=== PATIENT | female | born 1970 ===

== ENCOUNTER 2018-04-01 10:07 | Emergency (ER) | payer BC ==
[2018-04-01 10:08] VITALS: BMI 26.5
[2018-04-01 10:19] VITALS: RESP 18
[2018-04-01] MEDS ORDERED: Sodium Chloride 0.9% 1,000 ML IV STA (10:47)
--- NOTE | 2018-04-01 11:03 | ED PDOC ---
Arrival/HPI <Raul Valdes - Last Filed: 04/01/18 11:16> - General Historian: Patient, Spouse - History of Present Illness Narrative History of Present Illness (Text): 04/01/18 10:45 Patient is a 47 year old female with past medical history of hypertension who presented to the emergency department for 1 day history of productive cough, generalized body aches and chills. Patient states that her symptoms started yesterday. She took mucinex yesterday with no improvement in symptoms. Cough is productive with green sputum, and is asociated with back pain that radiates to the chest. Patient reports having a a migraine currently, that she rates 10/10 on the pain scale. She denies any fevers but admits to chills with occasional nausea. She denies any sick contacts or recent travel. Denies dizziness, cp, palpitations, sob, abdominal pain, vomiting, diarrhea, constipation, urinary symptoms. Time/Duration: 24 hours Symptom Course: Unchanged Quality: Unable to Describe Severity Level: 10 <Dee Dee Beltran - Last Filed: 04/01/18 12:58> - General Chief Complaint: Flu-like Symptoms Time Seen by Provider: 04/01/18 10:15 Past Medical History - Provider Review Nursing Documentation Reviewed: Yes - Travel History Have you recently traveled outside [place] w/in the past 3 mons?: No - Infectious Disease Hx of Infectious Diseases: None - Tetanus Immunization Tetanus Immunization: Up to Date - Past Medical History Past Medical History: No Previous - Cardiac Hx Cardiac Arrhythmia: Yes (irregular heart beat) Hx Hypertension: Yes Other/Comment: Loop recorder implantation since May 26. - Neurological Hx Migraine: Yes - Musculoskeletal/Rheumatological Hx Falls: No - Psychiatric Hx Depression: No Hx Substance Use: No - Past Surgical History Past Surgical History: No Previous - Surgical History Hx Section: Yes (x2) Other/Comment: rotator cuff surgery. fx R collar bone 01/20/18 - Anesthesia Hx Anesthesia: Yes Hx Anesthesia Reactions: No Hx Malignant Hyperthermia: No - Suicidal Assessment Feels Threatened In Home Enviroment: No <Dee Dee Beltran - Last Filed: 04/01/18 12:58> Family/Social History - Physician Review Nursing Documentation Reviewed: Yes Family/Social History: Diabetes, Hypertension, CAD/[place] Smoking Status: Never Smoked Hx Alcohol Use: No Hx Substance Use: No Hx Substance Use Treatment: No <Dee Dee Beltran - Last Filed: 04/01/18 12:58> Allergies/Home Meds <Raul Valdes - Last Filed: 04/01/18 11:16> <Dee Dee Beltran - Last Filed: 04/01/18 12:58> Allergies/Adverse Reactions: Allergies No Known Allergies Allergy (Verified 05/23/17 09:23) Home Medications: Home Meds Medication Instructions Recorded Confirmed Lisinopril [Zestril] 1 tab PO DAILY 05/23/17 04/01/18 Review of Systems - Review of Systems Constitutional: Fatigue. absent: Weight Change, Fevers Eyes: absent: Vision Changes ENT: Sore Throat. absent: Hearing Changes, Sinus Congestion Respiratory: Cough, Sputum. absent: SOB, Wheezing Cardiovascular: absent: Chest Pain, Palpitations, Calf Pain Gastrointestinal: Nausea. absent: Abdominal Pain, Stool Changes, Constipation, Diarrhea, Vomiting Genitourinary Female: absent: Dysuria, Frequency Musculoskeletal: Back Pain, Myalgias Skin: absent: Rash Neurological: Headache. absent: Dizziness <Dee Dee Beltran - Last Filed: 04/01/18 12:58> Physical Exam Vital Signs Temp Pulse Resp BP Pulse Ox 04/01/18 10:08 99.5 F 94 H 18 157/96 H 99 <Raul Valdes - Last Filed: 04/01/18 11:16> Vital Signs Reviewed: Yes Vital Signs Temp Pulse Resp BP Pulse Ox 04/01/18 10:08 99.5 F 94 H 18 157/96 H 99 Temperature: Afebrile Blood Pressure: Hypertensive Pulse: Regular Respiratory Rate: Normal Appearance: Positive for: Non-Toxic, Uncomfortable Pain Distress: Mild Mental Status: Positive for: Alert and Oriented X 3 - Systems Exam Head: Present: Atraumatic, Normocephalic Pupils: Present: PERRL Extroacular Muscles: Present: EOMI Conjunctiva: Present: Normal Mouth: Present: Moist Mucous Membranes Pharnyx: Present: Normal. No: ERYTHEMA, EXUDATE, TONSILS ENLARGED Neck: Present: Lymphadenopathy (right anterior cervical lymph node tenderness) Respiratory/Chest: Present: Good Air Exchange Abdomen: Present: Normal Bowel Sounds. No: Tenderness, Distention Back: Present: Normal Inspection. No: CVA Tenderness Upper Extremity: Present: Normal Inspection, Other (Limited ROM of right due to pain (rotator cuff injury)) Lower Extremity: Present: Normal Inspection Neurological: Present: GCS=15 Skin: Present: Warm, Dry, Normal Color. No: Rashes Lymphatic: Present: Cervical Adenopathy Psychiatric: Present: Alert, Oriented x 3 <Dee Dee Beltran - Last Filed: 04/01/18 12:58> Medical Decision Making ED Course and Treatment: 04/01/18 11:14 Seen and examined with resident. 47 year old female presents with productive cough, generalized body aches and chills. On exam, tenderness to right cervical lymph node. - RAD Interpretation Radiology Orders: 04/01/18 10:46 CXR [CHEST PORTABLE] [RAD] Stat - Medication Orders Current Medication Orders: Sodium Chloride (Sodium Chloride 0.9%) 1,000 mls @ 999 mls/hr IV .Q1H1M STA Stop: 04/01/18 11:47 Discontinued Medications Ketorolac Tromethamine (Toradol) 15 mg IVP STAT STA Stop: 04/01/18 10:48 <Raul Valdes - Last Filed: 04/01/18 11:16> ED Course and Treatment: 04/01/18 10:45 Patient seen and examined at bedside. Complaining for generalized body aches, chills, and productive cough since yesterday. Will order CBC, CMP, UA, CXR, Influenza A B, 1L NS bolus. Toradol 15mg IVP 04/01/18 12:47 Patient feeling better. Labs and imaging reviewed. Will discharge home with instructions to follow up with PMD outpatient. - Lab Interpretations I have reviewed the lab results: Yes Interpretation: All labs normal - RAD Interpretation Narrative RAD Interpretations (Text): 04/01/18 12:48 CXR: No active disease Radiology Orders: 04/01/18 10:46 CXR [CHEST PORTABLE] [RAD] Stat Electric Lineman: ED Physician - EKG Interpretation EKG Interpretation (Text): 04/01/18 11:27 EK bpm, NSR, no ST-T wave changes Interpreted by ED Physician: Yes Type: 12 lead EKG - Medication Orders Current Medication Orders: Sodium Chloride (Sodium Chloride 0.9%) 1,000 mls @ 999 mls/hr IV .Q1H1M STA Stop: 04/01/18 11:47 Discontinued Medications Ketorolac Tromethamine (Toradol) 15 mg IVP STAT STA Stop: 04/01/18 10:48 <Dee Dee Beltran - Last Filed: 04/01/18 12:58> - PA / PARTS PROCESSOR / Resident Statement / has reviewed & agrees with the documentation as recorded. / has examined the patient and agrees with the treatment plan. - Scribe Statement The provider has reviewed the documentation as recorded by the Scribe Ariana Meek All medical record entries made by the Scribe were at my direction and personally dictated by me. I have reviewed the chart and agree that the record accurately reflects my personal performance of the history, physical exam, medical decision making, and the department course for this patient. I have also personally directed, reviewed, and agree with the discharge instructions and disposition. <Raul Valdes - Last Filed: 04/01/18 11:16> Disposition/Present on Arrival <Raul Valdes - Last Filed: 04/01/18 11:16> - Present on Arrival Any Indicators Present on Arrival: No History of DVT/PE: No History of Uncontrolled Diabetes: No Urinary Catheter: No History of Decub. Ulcer: No History Surgical Site Infection Following: None - Disposition Have Diagnosis and Disposition been Completed?: Yes Disposition Time: 12:49 Patient Plan: Discharge <DevinDee Dee - Last Filed: 04/01/18 12:58> - Disposition Diagnosis: Upper respiratory infection Disposition: HOME/ ROUTINE Patient Problems: Current Active Problems Problem Status Onset Upper respiratory infection Acute Condition: FAIR Discharge Instructions (ExitCare): Viral Upper Respiratory Infection, Adult (DC) Additional Instructions: - Recommending to increase PO hydration, Advil OTC as needed - Follow up with PMD outpatient within 2-3 days - If symptoms worsen, return to emergency dept Referrals: Leida Packer MD [Primary Care Provider] - Follow up with primary Forms: [employer] (Korean)
[2018-04-01 11:33] LABS: BASO # 0.02 K/mm3 (0.0-2.0); BASO % 0.3 % (0.0-3.0); EOS # 0.1 (0.0-0.7); GRAN # 5.79 (1.4-6.5); GRAN % 80.9 % (50.0-68.0); HEMOGLOBIN 13.8 g/dL (12.0-16.0); LYMPH # 0.8 (1.2-3.4); LYMPH % 11.7 % (22.0-35.0); MEAN CELL VOLUME 85.3 fl (80.0-105.0); MEAN CORPUSCULAR HEMOGLOBIN 29.4 pg (25.0-35.0); MEAN CORPUSCULAR HGB CONC 34.4 g/dl (31.0-37.0); MEAN PLATELET VOLUME 12.2 fl (7.0-11.0); MONO # 0.4 (0.1-0.6); MONO % 6.1 % (1.0-6.0); RBC 4.7 10^6/uL (3.5-6.1); RED CELL DISTRIBUTION WIDTH 13.4 % (11.5-14.5); WHITE BLOOD COUNT 7.2 10^3/uL (4.5-11.0)
[2018-04-01 11:50] LABS: ALB/GLOB RATIO 1.3 (1.1-1.8); ALBUMIN 4.4 g/dL (3.0-4.8); ALT/SGPT 23 U/L (7-56); AST/SGOT 21 U/L (14-36); BLOOD UREA NITROGEN 9 mg/dL (7-21); CALCIUM 9.1 mg/dL (8.4-10.5); GFR NON-AFRICAN AMERICAN > 60
[2018-04-01 12:25] VITALS: PULSE 92
[2018-04-01 12:41] LABS: PH,URINE 6.5 (4.7-8.0); URINE BILIRUBIN NEGATIVE (NEGATIVE); URINE BLOOD TRACE-INTACT (NEGATIVE); URINE GLUCOSE (UA) NEGATIVE (NEGATIVE); URINE LEUKOCYTE ESTERASE NEGATIVE Leu/uL (NEGATIVE); URINE PROTEIN NEGATIVE mg/dL (<30 mg/dL); URINE UROBILINOGEN 0.2 E.U./dL (<1 E.U./dL)
[2018-04-01 12:44] LABS: URINE APPEARANCE CLEAR (CLEAR); URINE COLOR YELLOW (YELLOW)
[2018-04-01 12:46] LABS: URINE BACTERIA FEW (NEG); URINE WBC 0 - 2 /hpf (0-6)
[2018-04-01 13:12] VITALS: BP 160/93; TEMP 98.3; O2SAT 97
--- NOTE | 2018-04-01 13:21 | RAD ---
HISTORY: chest pain COMPARISON: Chest x-ray performed 05/26/16 TECHNIQUE: Chest, one view. FINDINGS: LUNGS: No focal consolidation. Please note that chest x-ray has limited sensitivity for the detection of pulmonary masses. PLEURA: No significant pleural effusion identified. No definite pneumothorax . CARDIOVASCULAR: Heart size appears within normal limits. No significant atherosclerotic calcification present. Implantable loop recorder noted. OSSEOUS STRUCTURES: No acute osseous abnormality identified. VISUALIZED UPPER ABDOMEN: Unremarkable. OTHER FINDINGS: None. IMPRESSION: No focal consolidation.
--- NOTE | 2018-04-02 07:31 | CARD ---
APPROVED REPORT Date of service: 04/01/2018 EKG Measurement Heart [id number] <Conclusion> Normal sinus rhythm NSSTW changes No change
== END 2018-04-01 12:57 | disposition home or self-care (01) ==
LOC: ED 10:07
DX: J06.9 Acute upper respiratory infection, unspecified (principal); I10 Essential (primary) hypertension; Z82.49 Family history of ischemic heart disease and other diseases of the circulatory system
CPT/HCPCS: 71045; 80053; 81001; 85025; 87804; 93005; 96361; 96374; 99283; J1885; J7030